=== PATIENT | female | born 1955 | race Caucasian/White ===

== ENCOUNTER 2019-12-02 20:31 | Emergency (ER) | payer MEDICARE, MEDICAID ==
[~2019-12-02] VITALS: Ht 177.8 cm; Wt 156.0 kg
[2019-12-02 20:40] VITALS: BP 173/79
--- NOTE | 2019-12-02 20:57 | NUR ---
TAKEN TO CT
[2019-12-02] MEDS ORDERED: ONDANSETRON ODT 4 MG PO ONE (21:00)
[2019-12-02] MEDS ORDERED: MECLIZINE CHEWABLE 25 MG TAB PO ONE (21:00)
[2019-12-02] MEDS ORDERED: ONDANSETRON ODT 4 MG ONE (21:16)
[2019-12-02] MEDS ORDERED: MECLIZINE CHEWABLE 25 MG TAB ONE (21:16)
--- NOTE | 2019-12-02 21:19 | NUR ---
MEDS GIVEN. PT RESTING COMFORTABLY IN BED. ALL RESULTS BACK AT THIS TIME, CHART UP FOR RECHECK
--- NOTE | 2019-12-02 21:44 | NUR ---
DAUGHTER CONTACTED ER PT REQUEST, DAUGHTER DANYA COMING TO PICK PT UP
[2019-12-02] MEDS ORDERED: ACETAMINOPHEN 325 MG TABLET ONE (22:18)
[2019-12-02] MEDS ORDERED: ACETAMINOPHEN 325 MG TABLET PO ONE (22:30)
== END 2019-12-02 22:45 | disposition home or self-care (01) ==
LOC: ED 21:45
DX: S06.320A Contusion and laceration of left cerebrum without loss of consciousness, initial encounter (principal); I10 Essential (primary) hypertension; J44.9 Chronic obstructive pulmonary disease, unspecified; I25.10 Atherosclerotic heart disease of native coronary artery without angina pectoris; I25.2 Old myocardial infarction; E66.01 Morbid (severe) obesity due to excess calories; Z86.73 Personal history of transient ischemic attack (TIA), and cerebral infarction without residual deficits; W01.0XXA Fall on same level from slipping, tripping and stumbling without subsequent striking against object, initial encounter; Y93.89 Activity, other specified; Y92.009 Unspecified place in unspecified non-institutional (private) residence as the place of occurrence of the external cause; Y99.8 Other external cause status; Z68.42 Body mass index [BMI] 45.0-49.9, adult
CPT/HCPCS: 70450; 70486; 99285; Q0162